=== PATIENT | male | born 1960 | race Caucasian/White ===

== ENCOUNTER → 2020-05-31 | Outpatient (CLI) | payer BC | END | disposition home or self-care (01) | LOC: CT 13:00 | PROVIDERS: ATTEND Orthopaedic Surgery | PROC: BQ28ZZZ Computerized Tomography (CT Scan) of Left Knee (ICD-10-PCS; principal; 2020-05-31) | DX: S82.002A Unspecified fracture of left patella, initial encounter for closed fracture (principal); X58.XXXA Exposure to other specified factors, initial encounter; Y92.9 Unspecified place or not applicable ==

== ENCOUNTER → 2020-06-20 | Outpatient (CLI) | payer BC | END | disposition home or self-care (01) | LOC: RD 15:38 | DX: M25.562 Pain in left knee (principal) ==